=== PATIENT | male | born 1985 ===

== ENCOUNTER 2022-02-11 13:17 | Emergency (ER) | payer OTHER ==
[~2022-02-11] VITALS: Ht 170.2 cm; Wt 98.1 kg
[2022-02-11] MEDS ORDERED: PRILOSEC OTC20 MG PO (16:08)
== END 2022-02-11 16:21 | disposition home or self-care (01) ==
LOC: ED 13:17
DX: K21.9 Gastro-esophageal reflux disease without esophagitis (principal); R10.9 Unspecified abdominal pain
CPT/HCPCS: 74022; 99284-25

== ENCOUNTER 2022-12-08 15:05 | Emergency (ER) | payer OTHER ==
[~2022-12-08] VITALS: Ht 165.1 cm; Wt 82.1 kg
[~2022-12-08 15:05] MED LIST: PRILOSEC OTC20 MG PO
[2022-12-08 15:21] LABS: BASOPHILS 0.5 % (0-2); HEMATOCRIT 38.7 % (35.0-50.0); HEMOGLOBIN 12.5 g/dL (12.0-18.0); LYMPHOCYTES 37.2 % (24-44); MCH 27.9 (27-36); MCHC 32.3 g/dl (30-36); MCV 86.4 fl (81-99); MONOCYTES 7.8 % (0-12); NEUTROPHILS 52.5 % (39-80); PLATELET COUNT 380 K/uL (140-440); RBC 4.48 M/ul (4.3-5.7); RDW 13.6 (10.5-15.0)
[2022-12-08 15:36] LABS: ALBUMIN 3.4 g/dL (3.4-5.0); ALBUMIN/GLOBULIN RATIO 0.85 (1.1-2.4); BILIRUBIN, TOTAL 0.4 ng/dL (0.2-1.0); BUN/CREATININE RATIO 10.63 (6.0-28.6); CALCIUM 8.9 mg/dL (8.5-10.1); CREATININE, SERUM 0.94 mg/dL (0.70-1.30); PROTEIN, TOTAL 7.4 g/dL (6.4-8.2)
[2022-12-08 17:33] VITALS: BP 137/90
== END 2022-12-08 17:30 | disposition home or self-care (01) ==
LOC: ED 15:05 → EDBD 15:06 → ED 15:06
PROVIDERS: Student in an Organized Health Care Education/Training Program
DX: S22.31XA Fracture of one rib, right side, initial encounter for closed fracture (principal); J98.01 Acute bronchospasm; W55.12XA Struck by horse, initial encounter
CPT/HCPCS: 36415; 71045; 80053; 85025; 94640; 99285-25